=== PATIENT | male | born 1965 | race Two or more races ===

== ENCOUNTER 2018-03-31 12:31 | Emergency (ER) | payer BC ==
[~2018-03-31] VITALS: Ht 162.6 cm; Wt 72.6 kg
[2018-03-31] MEDS ORDERED: IV NORMAL SALINE 1000ML BAG 1,000 ML IV ONE (13:30)
[2018-03-31 13:34] LABS: BASO % 0 % (0-3); EOS % 0 % (0-3); HEMATOCRIT 49.1 % (39.0-53.0); HEMOGLOBIN 17.2 g/dL (13.0-17.5); LYMPH # 1.1 x10^3/uL (1.0-4.8); LYMPH % 22 % (24-48); MEAN CORPUSCULAR HEMOGLOBIN 31 pg (25-35); MEAN CORPUSCULAR HGB CONC 35 g/dL (31-37); MEAN CORPUSCULAR VOLUME 89 fL (79-100); MONO # 0.5 x10^3/uL (0.0-1.1); MONO % 10 % (0-9); NEUT # 3.4 x10^3uL (1.8-7.7); NEUT % 68 % (31-73); PLATELET COUNT 140 x10^3/uL (140-400); RED BLOOD COUNT 5.53 x10^6/uL (4.30-5.70); RED CELL DISTRIBUTION WIDTH 13.1 % (11.5-14.5); WHITE BLOOD COUNT 5.1 x10^3/uL (4.0-11.0)
[2018-03-31 13:44] LABS: CALCIUM 9.4 mg/dL (8.5-10.1); CREATININE 1.2 mg/dL (0.7-1.3); GFR 63.3; POTASSIUM 3.5 mmol/L (3.5-5.1)
--- NOTE | 2018-03-31 14:24 | PHYS DOC ---
Past Medical History Past Medical History: CVA, High Cholesterol, Hypertension, Other Additional Past Medical Histor: ENLARGED PROSTATE Past Surgical History: Angioplasty, Other Additional Past Surgical Histo: CARDIAC STENTS Alcohol Use: None Drug Use: None Adult General Chief Complaint Chief Complaint: ABDOMINAL PAIN HPI HPI Patient is a 52 year old male who presents with epigastric pain. Patient states he has been ill over the last few days. He had multiple episodes of nonbloody diarrhea over that time. He had some intermittent epigastric and generalized abdominal pain. He does endorse also some nausea and had some frequent eructations. No fever or chills. No recent travel. No ill family members. The patient has no significant history of abdominal surgeries. Review of Systems Review of Systems Constitutional: Denies fever or chills Eyes: Denies change in visual acuity HENT: Denies nasal congestion Respiratory: Denies cough Cardiovascular: No additional information not addressed in HPI GI: epigastric pain : Denies dysuria Musculoskeletal: Denies back pain Integument: Denies rash Neurologic: Denies headache Endocrine: Denies polyuria All other systems were reviewed and found to be within normal limits, except as documented in this note. Current Medications Current Medications Current Medications Medications (Trade) Dose Ordered Sig/Lauren Start Time Stop Time Status Last Admin Dose Admin Sodium Chloride 1,000 ml @ 1,000 mls/hr 1X ONCE 03/31/18 13:30 03/31/18 14:29 03/31/18 13:35 1,000 MLS/HR Allergies Allergies Allergies Coded Allergies Type Severity Reaction Last Updated Verified No Known Drug Allergies 03/31/18 No Physical Exam Physical Exam Constitutional: Well developed, well nourished, no acute distress HENT: Normocephalic, atraumatic, bilateral external ears normal, oropharynx dry Eyes: PERRLA, EOMI, conjunctiva normal Neck: Normal range of motion Cardiovascular:Heart rate regular rhythm, no murmur Lungs & Thorax: Bilateral breath sounds clear to auscultation Abdomen: Bowel sounds normal, soft, no tenderness, no masses, no pulsatile masses. Skin: Warm, dry, no erythema, no rash. Extremities: No edema Neurologic: Alert and oriented X 3 Psychologic: Affect normal Current Patient Data Vital Signs Vital Signs Date Time Temp Pulse Resp B/P (MAP) Pulse Ox O2 Delivery O2 Flow Rate FiO2 03/31/18 12:37 98.4 85 18 132/80 (97) 98 Room Air 98.4 Lab Values Laboratory Tests Test 03/31/18 12:45 White Blood Count 5.1 x10^3/uL (4.0-11.0) Red Blood Count 5.53 x10^6/uL (4.30-5.70) Hemoglobin 17.2 g/dL (13.0-17.5) Hematocrit 49.1 % (39.0-53.0) Mean Corpuscular Volume 89 fL (79-100) Mean Corpuscular Hemoglobin 31 pg (25-35) Mean Corpuscular Hemoglobin Concent 35 g/dL (31-37) Red Cell Distribution Width 13.1 % (11.5-14.5) Platelet Count 140 x10^3/uL (140-400) Neutrophils (%) (Auto) 68 % (31-73) Lymphocytes (%) (Auto) 22 % (24-48) L Monocytes (%) (Auto) 10 % (0-9) H Eosinophils (%) (Auto) 0 % (0-3) Basophils (%) (Auto) 0 % (0-3) Neutrophils # (Auto) 3.4 x10^3uL (1.8-7.7) Lymphocytes # (Auto) 1.1 x10^3/uL (1.0-4.8) Monocytes # (Auto) 0.5 x10^3/uL (0.0-1.1) Eosinophils # (Auto) 0.0 x10^3/uL (0.0-0.7) Basophils # (Auto) 0.0 x10^3/uL (0.0-0.2) Sodium Level 138 mmol/L (136-145) Potassium Level 3.5 mmol/L (3.5-5.1) Chloride Level 100 mmol/L (98-107) Carbon Dioxide Level 27 mmol/L (21-32) Anion Gap 11 (6-14) Blood Urea Nitrogen 25 mg/dL (8-26) Creatinine 1.2 mg/dL (0.7-1.3) Estimated GFR (Cockcroft-Gault) 63.3 Glucose Level 115 mg/dL (70-99) H Calcium Level 9.4 mg/dL (8.5-10.1) Laboratory Tests 03/31/18 12:45 Laboratory Tests 9/20/18 12:45 EKG EKG [] Radiology/Procedures Radiology/Procedures [] Course & Med Decision Making Course & Med Decision Making Pertinent Labs and Imaging studies reviewed. (See chart for details) Armond presented to the emergency department with epigastric pain and diarrhea primarily. He has had symptoms over the last 2 days. On her arrival to the emergency room, the patient states he had passed a lot of gas and his pain was completely resolved. On physical exam, the patient has no positive findings on his abdominal exam. He is completely soft and nontender. In the ER, the patient was given 1 L of normal saline. He did have urine output. He continued to have relief of his pain symptoms without any intervention. Plan is for discharge home. The patient has symptoms most consistent with diarrhea and gastroenteritis. He is advised to use antacid medications and Imodium over-the- counter. He will also go on a clear liquid diet for the next 24 hours. Because no imaging was done, patient was specifically advised to return to the ER if he develops a fever or worsening abdominal pain that is persistent. All of his questions were answered prior to discharge home and he was agreeable to the plan of care. Dragon Disclaimer Dragon Disclaimer This electronic medical record was generated, in whole or in part, using a voice recognition dictation system. Departure Departure Impression: Primary Impression: Diarrhea Additional Impression: Abdominal pain Disposition: 01 HOME, SELF-CARE Condition: GOOD Patient Instructions: Gastritis, Adult, [id number], Diarrhea Additional Instructions: It is OK for you to use some IMODIUM to help stop your diarrhea. You can buy this medication without a prescription at any store. Problem Qualifiers PIYUSH JERONIMO DO Mar 31, 2018 14:24
--- NOTE | 2018-03-31 14:31 | EKG ---
[facility] [address] [place] [address] Test Date: 2018-03-31 Test Time: 12:54:17 Pat Name: RON LANGLEY Department: Room: Gender: M Cleaners: : 1965 Requested By: PIYUSH JERONIMO Order Number: [id number] Reading MD: Emile Mahajan Measurements Intervals [place] Rate: 81 P: 33 OK: 136 QRS: 46 QRSD: 90 T: 3 QT: 356 QTc: 418 Interpretive Statements SINUS RHYTHM NORMAL ECG No previous ECG available for comparison Electronically Signed On 04-05-2018 10:24:34 CDT by Emile Mahajan
[2018-03-31 15:11] VITALS: BP 132/84
== END 2018-03-31 15:19 | disposition home or self-care (01) ==
LOC: ER 12:31
DX: R10.13 Epigastric pain (principal); R19.7 Diarrhea, unspecified; R10.84 Generalized abdominal pain; E78.00 Pure hypercholesterolemia, unspecified; I10 Essential (primary) hypertension; Z86.73 Personal history of transient ischemic attack (TIA), and cerebral infarction without residual deficits
CPT/HCPCS: 36415; 80048; 85025; 93005; 96360; 99285; J7030